=== PATIENT | male | born 1955 | race Caucasian/White ===

== ENCOUNTER 2016-10-01 13:54 | Emergency (ER) | payer BC ==
[2016-10-01 16:00] LABS: BASO % 0.9 % (0.0-1.0); EOS % 0.9 % (0.0-3.0); LARGE UNSTAINED CELL # 0.1 K/mm3 (0.0-0.4); LARGE UNSTAINED CELL % 2.3 % (0.0-4.0); LYMPH # 1.6 K/mm3 (1.5-4.5); LYMPH % 29.5 % (24.0-44.0); MEAN CORPUSCULAR HEMOGLOBIN 31.7 pg (27.0-33.0); MEAN CORPUSCULAR HGB CONC 33.5 g/dl (32.0-36.5); MEAN CORPUSCULAR VOLUME 94.7 fl (80.0-96.0); MONO # 0.3 K/mm3 (0.0-0.8); MONO % 6.2 % (0.0-5.0); NEUTROPHILS % 60.2 % (36.0-66.0); PLATELET COUNT, AUTOMATED 206 k/mm3 (150-450); RED CELL DISTRIBUTION WIDTH 13.2 % (11.5-14.5)
[2016-10-01 16:22] LABS: ALBUMIN 3.8 GM/DL (3.2-5.2); ALBUMIN/GLOBULIN RATIO 1.03 (1.00-1.93); ALKALINE PHOSPHATASE 59 U/L (45-117); ALT/SGPT 20 U/L (12-78); AMYLASE 44 U/L (25-115); ANION GAP 9 MEQ/L (8-16); AST/SGOT 12 U/L (15-37); BILIRUBIN,DIRECT 0.1 MG/DL (0.0-0.2); BILIRUBIN,TOTAL 0.5 MG/DL (0.2-1.0); BLOOD UREA NITROGEN 14 MG/DL (7-18); CALCIUM LEVEL 8.5 MG/DL (8.8-10.2); CARBON DIOXIDE LEVEL 27 MEQ/L (21-32); CHLORIDE LEVEL 109 MEQ/L (98-107); CREATININE FOR GFR 0.86 MG/DL (0.70-1.30); GLOMERULAR FILTRATION RATE > 60.0 (>49); GLUCOSE, FASTING 95 MG/DL (80-110); SODIUM LEVEL 145 MEQ/L (136-145); TOTAL PROTEIN 7.5 GM/DL (6.4-8.2)
[2016-10-01] MEDS ORDERED: ISOVUE-370 76% 100ML VIAL (Q9967) As Ordered ONE (16:43)
--- NOTE | 2016-10-01 17:16 | REP ---
Clinical: Left-sided abdominal pain. Technique: Axial contrast enhanced images from the lung bases to the pubic symphysis using 100 ml Isovue 370 intravenous contrast material with coronal and sagittal re-formations. Findings: Lung bases clear. Visualized heart and pericardium normal. Liver, spleen, pancreas, gallbladder, bilateral adrenal glands and kidneys are essentially normal. Approximately four benign appearing splenic cysts are identified measuring up to 1.4 cm diameter. Small hiatal hernia identified at the gastroesophageal junction. The enteric system is without obstruction or acute inflammatory process. Pelvis demonstrates normal bladder and mild enlargement to the prostate gland measuring up to approximately 4.2 cm maximal diameter with mild mass effect on the base of the bladder. No pelvic fluid or ascites. No adenopathy. No free air. Mild atherosclerotic changes to the vasculature without aortic aneurysm or dissection. Musculoskeletal structures demonstrate age-related degenerative changes to the lumbosacral spine without focal osseous abnormality. Evidence of prior right inguinal hernia repair. Impression: Few benign-appearing splenic cysts up to 1.4 cm diameter. Prominent prostate gland. No further acute intra-abdominal or pelvic pathology appreciated. Signed by Jesus Denson MD 10/01/2016 05:08 P
--- NOTE | 2016-10-01 18:12 | EDDOCDS ---
Physician Documentation [facility] Name: Thony Simpson Age: 61 yrs Sex: Male : 1955 Arrival Date: 10/01/2016 Time: 13:54 Bed I6 / 28 Private MD: Martita Li N. Disposition: 10/01/16 17:37 Discharged to Home/Self Care. Impression: Abdominal and pelvic pain - with Splenic Cysts up to 1.4 cm, benign appearing. - Condition is Stable. - Discharge Instructions: Abdominal Pain, Adult. - Medication Reconciliation, Local Pharmacy Hours form. - Follow up: Martita Li; When: 1 - 2 days; Reason: Recheck today's complaints, Continuance of care. Follow up: Emergency Department; When: As needed; Reason: Worsening of conditions. - Problem is new. - Symptoms have improved. Historical: - Allergies: no known allergies; - Home Meds: 1. Zantac 75 mg Oral every couple of weeks- prn - PMHx: Hypertension; GERD; Hyperthyroidism; - PSHx: Colonoscopy; Hernia repair; - Social history: Smoking status: Patient states was never smoker of tobacco. No barriers to communication noted, The patient speaks fluent Armenian, Speaks appropriately for age. - Family history: Not pertinent. - : The pt / caregiver states he / she is not on anticoagulants. Home medication list is obtained from the patient. - Exposure Risk Screening:: None identified. Vital Signs: 10/01 13:56 BP 165 / 98; Pulse 82; Resp 18 S; Temp 97.9(O); Pulse Ox 100% on R/A; Weight 86.18 kg / dd6 189.99 lbs (R); Height 6 ft. 0 in. (182.88 cm) (R); 17:59 BP 145 / 75; Pulse 72; Resp 20; Temp 97.6; Pulse Ox 100% ; Pain 3/10; jam1 13:56 Body Mass Index 25.77 (86.18 kg, 182.88 cm) dd6 MDM: 14:11 HIV Screen, Nursing ordered. srm 15:15 IV Saline Lock ordered. dk1 15:15 Undress patient appropriately for examination ordered. dk1 15:17 NOTHING BY MOUTH+DIET ordered. EDMS 15:17 Amylase Ordered. EDMS 15:17 Basic Metabolic Profile Ordered. EDMS 15:17 CBC with Diff Ordered. EDMS 15:17 Urinalysis Ordered. EDMS 15:17 Urine Culture Ordered. EDMS 15:20 LIPASE Ordered. EDMS 15:20 LIVER PROFILE Ordered. EDMS 15:32 Financial registration complete. lg 15:35 [facility] Payment Agreement was scanned into [employer] and attached to record. lg 16:34 Basic Metabolic Profile Reviewed. dk1 16:34 CBC with Diff Reviewed. dk1 16:34 Urinalysis Reviewed. dk1 16:34 LIVER PROFILE Reviewed. dk1 16:34 Amylase Reviewed. dk1 16:34 LIPASE Reviewed. dk1 16:35 CT ABD & PELVIS: IV Contrast Only Ordered. EDMS 17:33 CT ABD & PELVIS: IV Contrast Only Reviewed. dk1 Signatures: Dispatcher [employer] EDMS Shasta Chacon, RN RN [facility] Rosa Arnett, Reg Reg Emiliano Coker, PAGillian PAGillian dk1 Kathy Webb RN RN [facility] The chart was reviewed and I authenticate all verbal orders and agree with the evaluation and treatment provided.Corrections: (The following items were deleted from the chart) 15:20 15:17 LIPASE+LAB ordered. EDMS EDMS 15:20 15:17 LIVER PROFILE+LAB ordered. EDMS EDMS Attachments: 15:35 [facility] Payment Agreement lg MTDD
--- NOTE | 2016-10-01 18:12 | EDDOCDS ---
Nurse's Notes [facility] Name: Thony Simpson Age: 61 yrs Sex: Male : 1955 Arrival Date: 10/01/2016 Time: 13:54 Bed I6 / 28 Private MD: Martita Li N. Diagnosis: Abdominal and pelvic pain-with Splenic Cysts up to 1.4 cm, benign appearing Presentation: 10/01 14:04 Presenting complaint: Patient states: left upper quad pain for 2 weeks. no n/v/d. seen srm at [facility] and sent here for further eval. Adult Sepsis Screening: The patient does not have new or worsening altered mentation. Patient's respiratory rate is less than 22. Systolic blood pressure is greater than 100. Patient has a qSOFA score of 0- Negative Sepsis Screen. Suicide/Homicide risk assessment- the patient denies having any suicidal and/or homicidal ideations and does not present with any other emotional, behavioral or mental health complaints. Status: Patient is not a funeral service manager or dependent. Transition of care: Patient was received from [facility]. 14:04 Acuity: HOMA Level 3 [facility] 14:04 Method Of Arrival: Walkin/Carried/[facility] Triage Assessment: 14:09 General: Appears in no apparent distress, Behavior is appropriate for age, cooperative. srm Pain: Pain currently is 3 out of 10 on a pain scale. GI: Reports LUQ pain. Historical: - Allergies: no known allergies; - Home Meds: 1. Zantac 75 mg Oral every couple of weeks- prn - PMHx: Hypertension; GERD; Hyperthyroidism; - PSHx: Colonoscopy; Hernia repair; - Social history: Smoking status: Patient states was never smoker of tobacco. No barriers to communication noted, The patient speaks fluent South Korean, Speaks appropriately for age. - Family history: Not pertinent. - : The pt / caregiver states he / she is not on anticoagulants. Home medication list is obtained from the patient. - Exposure Risk Screening:: None identified. Screenin:01 Screening information is obtained from the patient. Primary language is South Korean. Fall jam1 risk: No risks identified. Assistance ADL's: requires no assistance with activities of daily living. Abuse/DV Screen: The patient / caregiver reports he/she is: not in a situation that causes fear, pain or injury. Nutritional screening: No deficits noted. Exposure Risk Screening: None identified. Advance Directives: Currently, there is no health care proxy. There is no active DNR order. There is no living will. There is no Power of Correctional Cook. Advance directive information has not previously been placed in an [facility] medical record. Further advance directive information is declined. home support is adequate. Assessment: 15:42 Adult Sepsis Screening: The patient does not have new or worsening altered mentation. lf1 Patient's respiratory rate is less than 22. Systolic blood pressure is greater than 100. Patient has a qSOFA score of 0- Negative Sepsis Screen. General: Appears in no apparent distress, comfortable, Behavior is cooperative. Pain: Location: left upper quadrant Pain currently is 4 out of 10 on a pain scale. Pain began 1 Week ago - pt is intermittent, worse at night. Neurological: Level of Consciousness is awake, alert, Oriented to person, place, time. EENT: No deficits noted. Cardiovascular: Chest pain is denied. Respiratory: Respiratory effort is even, unlabored, Denies cough, shortness of breath. GI: Abdomen is non- distended Bowel sounds present X 4 quads. Abd is soft and non tender Denies diarrhea, vomiting. : No deficits noted. Derm: Skin is normal. 17:02 Adult Sepsis Screening: The patient does not have new or worsening altered mentation. lf1 Patient's respiratory rate is less than 22. Systolic blood pressure is greater than 100. Patient has a qSOFA score of 0- Negative Sepsis Screen. General: Appears in no apparent distress, comfortable, Behavior is cooperative, pleasant. Pain: Location: left upper quadrant Pain currently is 2 out of 10 on a pain scale. Neurological: Level of Consciousness is awake, alert, Oriented to person, place, time, Moves all extremities. Gait is steady, Speech is normal. EENT: No deficits noted. Cardiovascular: Chest pain is denied. Respiratory: Respiratory effort is even, unlabored. 18:09 General: Appears in no apparent distress, comfortable, Behavior is appropriate for age, h cooperative, pleasant, reviewed discharge instructions, encouraged and answered questions, denies further needs, declines offer of further assistance. Vital Signs: 13:56 BP 165 / 98; Pulse 82; Resp 18 S; Temp 97.9(O); Pulse Ox 100% on R/A; Weight 86.18 kg dd6 (R); Height 6 ft. 0 in. (182.88 cm) (R); 17:59 BP 145 / 75; Pulse 72; Resp 20; Temp 97.6; Pulse Ox 100% ; Pain 3/10; jam1 13:56 Body Mass Index 25.77 (86.18 kg, 182.88 cm) dd6 Vitals: 13:56 Log In Time: October 01, 2016 at 13:54. dd6 17:01 HIV Screen Result: Negative. ms18 ED Course: 13:55 Patient visited by Dexter Ramos PCA. dd6 13:55 Martita Li is Private Physician. dd6 13:55 Patient moved to Waiting dd6 13:56 Patient moved to Pre RCE dd6 14:06 Triage Initiated srm 14:58 Patient moved to Triage 1 ms18 15:04 Patient visited by Mandy Jackson RN. ms18 15:08 [facility] Coker [facility]. dk1 15:08 Vale Ortiz MD is Attending Physician. dk1 15:08 Patient visited by Emiliano Coker PA-C. dk1 15:17 Patient moved to I ms18 15:21 Pt greeted and oriented to ED. Patient advised of names of staff involved in care, [facility] location of call shaw, wait times and NPO status. Patient has correct armband on for positive identification. Placed in gown. Bed in low position. Call light in reach. Side rails up X 1. Door closed. 15:35 Patient name changed from Thony\S\\S\Offshack\S\ to Thony\S\Vickey\S\Offshack. EDMS 15:35 COUNT INCLUDES THE [facility] Payment Agreement was scanned into [employer] and attached to record. lg 15:42 The patient / caregiver is instructed regarding the plan of care and ED course. Door lf1 closed. Noise minimized. 15:42 Urine Culture Sent. lf1 15:42 Urinalysis Sent. lf1 15:42 CBC with Diff Sent. lf1 15:42 Basic Metabolic Profile Sent. lf1 15:42 Amylase Sent. lf1 15:42 LIPASE Sent. lf1 15:42 LIVER PROFILE Sent. lf1 15:42 Inserted saline lock: 20 gauge in right antecubital area and blood collected. The lf1 patient tolerated the procedure well. Labs drawn. (by ED staff). Sent per order to lab. Urine collected. Clean catch specimen. 15:44 Patient visited by Jaqui Silverman RN. lf1 17:26 CT ABD & PELVIS: IV Contrast Only Returned. EDMS 17:36 Martita Li is Referral Physician. dk1 18:09 Discontinued lock intact, bleeding controlled, pressure dressing applied, No cjh redness/swelling at site. No procedures done that require assistance. Order Results: Lab Order: Amylase; SPEC'M 10/01/16 15:40 Test: AMYLASE; Value: 44; Range: 25-115; Units: U/L; Status: F Lab Order: Basic Metabolic Profile; SPEC'M 10/01/16 15:40 Test: GLUCOSE, FASTING; Value: 95; Range: 80-110; Units: MG/DL; Status: F Test: BLOOD UREA NITROGEN; Value: 14; Range: 7-18; Units: MG/DL; Status: F Test: CREATININE FOR GFR; Value: 0.86; Range: 0.70-1.30; Units: MG/DL; Status: F Test: GLOMERULAR FILTRATION RATE; Value: > 60.0; Range: >49; Status: F Test: SODIUM LEVEL; Value: 145; Range: 136-145; Units: MEQ/L; Status: F Test: POTASSIUM SERUM; Value: 4.0; Range: 3.5-5.1; Units: MEQ/L; Status: F Test: CHLORIDE LEVEL; Value: 109; Range: 98-107; Abnormal: Above high normal; Units: MEQ/L; Status: F Test: CARBON DIOXIDE LEVEL; Value: 27; Range: 21-32; Units: MEQ/L; Status: F Test: ANION GAP; Value: 9; Range: 8-16; Units: MEQ/L; Status: F Test: CALCIUM LEVEL; Value: 8.5; Range: 8.8-10.2; Abnormal: Below low normal; Units: MG/DL; Status: F Test Note: ; Units are mL/min/1.73 m2 Chronic Kidney Disease Staging per NKF: Stage I & II GFR >=60 Normal to Mildly Decreased Stage III GFR 30-59 Moderately Decreased Stage IV GFR 15-29 Severely Decreased Stage V GFR <15 Very Little GFR Left ESRD GFR <15 on ANODIC OPERATOR Lab Order: CBC with Diff; ALIYA'M 10/01/16 15:40 Test: WHITE BLOOD COUNT; Value: 5.0; Range: 4.0-10.0; Units: K/mm3; Status: F Test: RED BLOOD COUNT; Value: 4.79; Range: 4.30-6.10; Units: M/mm3; Status: F Test: HEMOGLOBIN; Value: 15.2; Range: 14.0-18.0; Units: g/dl; Status: F Test: HEMATOCRIT; Value: 45.4; Range: 42.0-52.0; Units: %; Status: F Test: MEAN CORPUSCULAR VOLUME; Value: 94.7; Range: 80.0-96.0; Units: fl; Status: F Test: MEAN CORPUSCULAR HEMOGLOBIN; Value: 31.7; Range: 27.0-33.0; Units: pg; Status: F Test: MEAN CORPUSCULAR HGB CONC; Value: 33.5; Range: 32.0-36.5; Units: g/dl; Status: F Test: RED CELL DISTRIBUTION WIDTH; Value: 13.2; Range: 11.5-14.5; Units: %; Status: F Test: PLATELET COUNT, AUTOMATED; Value: 206; Range: 150-450; Units: k/mm3; Status: F Test: NEUTROPHILS %; Value: 60.2; Range: 36.0-66.0; Units: %; Status: F Test: LYMPH %; Value: 29.5; Range: 24.0-44.0; Units: %; Status: F Test: MONO %; Value: 6.2; Range: 0.0-5.0; Abnormal: Above high normal; Units: %; Status: F Test: EOS %; Value: 0.9; Range: 0.0-3.0; Units: %; Status: F Test: BASO %; Value: 0.9; Range: 0.0-1.0; Units: %; Status: F Test: LARGE UNSTAINED CELL %; Value: 2.3; Range: 0.0-4.0; Units: %; Status: F Test: NEUTROPHILS #; Value: 3.0; Range: 1.8-7.7; Units: K/mm3; Status: F Test: LYMPH #; Value: 1.6; Range: 1.5-4.5; Units: K/mm3; Status: F Test: MONO #; Value: 0.3; Range: 0.0-0.8; Units: K/mm3; Status: F Test: EOS #; Value: 0.0; Range: 0.0-0.50; Units: K/mm3; Status: F Test: BASO #; Value: 0.0; Range: 0.0-0.2; Units: K/mm3; Status: F Test: LARGE UNSTAINED CELL #; Value: 0.1; Range: 0.0-0.4; Units: K/mm3; Status: F Lab Order: Urinalysis; SPEC'M 10/01/16 15:40 Test: APPEARANCE, URINE; Value: CLEAR; Range: CLEAR; Status: F Test: COLOR, URINE; Value: YELLOW; Range: YELLOW; Status: F Test: PH,URINE; Value: 5.0; Range: 5.0-9.0; Units: UNITS; Status: F Test: SPECIFIC GRAVITY URINE AUTO; Value: 1.014; Range: 1.002-1.035; Status: F Test: PROTEIN, URINE AUTO; Value: NEGATIVE; Range: NEGATIVE; Units: mg/dL; Status: F Test: GLUCOSE, URINE (UA) AUTO; Value: NEGATIVE; Range: NEGATIVE; Units: mg/dL; Status: F Test: KETONE, URINE AUTO; Value: 1+; Range: NEGATIVE; Abnormal: Above high normal; Units: mg/dL; Status: F Test: UROBILINOGEN, URINE AUTO; Value: 0.2; Range: 0.0-2.0; Units: mg/dL; Status: F Test: BILIRUBIN, URINE AUTO; Value: NEGATIVE; Range: NEGATIVE; Status: F Test: NITRITE, URINE AUTO; Value: NEGATIVE; Range: NEGATIVE; Status: F Test: LEUKOCYTE ESTERASE, URINE AUTO; Value: NEGATIVE; Range: NEGATIVE; Status: F Test: BLOOD, URINE BLOOD; Value: 1+; Range: NEGATIVE; Abnormal: Above high normal; Status: F Test: WBC, URINE AUTO; Value: 0; Range: 0-3; Units: /HPF; Status: F Test: RBC, URINE AUTO; Value: 0; Range: 0-3; Units: /HPF; Status: F Test: BACTERIA, URINE AUTO; Value: NEGATIVE; Range: NEGATIVE; Status: F Test: SQUAMOUS EPITHELIAL CELL UR AU; Value: 0; Range: 0-6; Units: /HPF; Status: F Test: MUCUS, URINE; Value: SMALL; Range: NEGATIVE; Status: F Test: HYALINE CAST, URINE AUTO; Value: 0; Range: 0-1; Units: /LPF; Status: F Lab Order: LIPASE; SPEC'M 10/01/16 15:40 Test: LIPASE; Value: 102; Range: 73-393; Units: U/L; Status: F Lab Order: LIVER PROFILE; SPEC'M 10/01/16 15:40 Test: AST/SGOT; Value: 12; Range: 15-37; Abnormal: Below low normal; Units: U/L; Status: F Test: ALT/SGPT; Value: 20; Range: 12-78; Units: U/L; Status: F Test: ALKALINE PHOSPHATASE; Value: 59; Range: 45-117; Units: U/L; Status: F Test: BILIRUBIN,TOTAL; Value: 0.5; Range: 0.2-1.0; Units: MG/DL; Status: F Test: BILIRUBIN,DIRECT; Value: 0.1; Range: 0.0-0.2; Units: MG/DL; Status: F Test: TOTAL PROTEIN; Value: 7.5; Range: 6.4-8.2; Units: GM/DL; Status: F Test: ALBUMIN; Value: 3.8; Range: 3.2-5.2; Units: GM/DL; Status: F Test: ALBUMIN/GLOBULIN RATIO; Value: 1.03; Range: 1.00-1.93; Status: F Radiology Order: CT ABD & PELVIS: IV Contrast Only Test: CT ABD & PELVIS: IV Contrast Only REASON FOR EXAMINATION: Biliary Colic; Clinical: Left-sided abdominal pain.; ; Technique: Axial contrast enhanced images from the lung bases to the pubic; symphysis using 100 ml Isovue 370 intravenous contrast material with coronal and; sagittal re-formations.; ; Findings:; Lung bases clear. Visualized heart and pericardium normal.; ; Liver, spleen, pancreas, gallbladder, bilateral adrenal glands and kidneys are; essentially normal. Approximately four benign appearing splenic cysts are; identified measuring up to 1.4 cm diameter. Small hiatal hernia identified at; the gastroesophageal junction. The enteric system is without obstruction or; acute inflammatory process. Pelvis demonstrates normal bladder and mild; enlargement to the prostate gland measuring up to approximately 4.2 cm maximal; diameter with mild mass effect on the base of the bladder. No pelvic fluid or; ascites. No adenopathy. No free air. Mild atherosclerotic changes to the; vasculature without aortic aneurysm or dissection. Musculoskeletal structures; demonstrate age-related degenerative changes to the lumbosacral spine without; focal osseous abnormality. Evidence of prior right inguinal hernia repair.; ; Impression:; Few benign-appearing splenic cysts up to 1.4 cm diameter.; Prominent prostate gland.; No further acute intra-abdominal or pelvic pathology appreciated.; ; ; Signed by; Jesus Denson MD 10/01/2016 05:08 P; Outcome: 17:36 Discharge ordered by Provider. dk1 18:09 Discharge Assessment: Patient awake, alert and oriented x 3. No cognitive and/or [facility] functional deficits noted. Patient verbalized understanding of disposition instructions. patient administered narcotics - no. The following High Risk Discharge criteria are identified: None. Discharged to home ambulatory. Condition: good Condition: stable Condition: improved. Discharge instructions given to patient, Instructed on discharge instructions, follow up and referral plans. Demonstrated understanding of instructions, Pt was receptive of discharge instructions/ teaching. CT Study completed. Property :Personal belongings accompany Pt. 18:11 Patient left the ED. [facility] Signatures: Dispatcher [employer] EDMS Shasta Chacon RN RN srm Murphy, Jane, DRAFTING SUPERVISOR DRAFTING SUPERVISOR jam1 Rosa Arnett Reg Reg lg Keyes, David, PA-C PAAmairaniC [email or web address] Jaqui Silverman,JEREL RN lf1 Dexter Ramos, DRAFTING SUPERVISOR DRAFTING SUPERVISOR dd6 Kathy Webb RN RN [facility] Mandy Jackson RN RN ms18 Corrections: (The following items were deleted from the chart) 17:02 15:42 Pain: Location: left upper quadrant Pain currently is 7 out of 10 on a pain lf1 scale. Pain began 1 Week ago - pt is intermittent, worse at night lf1 18:03 18:02 Patient has correct armband on for positive identification. Bed in low position. jam1 Call light in reach. Side rails up X 1. jam1 18:03 18:02 Door closed. jam1 jam1 MTDD
--- NOTE | 2016-10-03 19:11 | EDDOCDS ---
Nurse's Notes [facility] Name: Thony Simpson Age: 61 yrs Sex: Male : 1955 Arrival Date: 10/01/2016 Time: 13:54 Bed I6 / 28 Private MD: Martita Li N. Diagnosis: Abdominal and pelvic pain-with Splenic Cysts up to 1.4 cm, benign appearing Presentation: 10/01 14:04 Presenting complaint: Patient states: left upper quad pain for 2 weeks. no n/v/d. seen srm at [facility] and sent here for further eval. Adult Sepsis Screening: The patient does not have new or worsening altered mentation. Patient's respiratory rate is less than 22. Systolic blood pressure is greater than 100. Patient has a qSOFA score of 0- Negative Sepsis Screen. Suicide/Homicide risk assessment- the patient denies having any suicidal and/or homicidal ideations and does not present with any other emotional, behavioral or mental health complaints. Status: Patient is not a service plumber or dependent. Transition of care: Patient was received from [facility]. 14:04 Acuity: HOMA Level 3 [facility] 14:04 Method Of Arrival: Walkin/Carried/Asstd [facility] Triage Assessment: 14:09 General: Appears in no apparent distress, Behavior is appropriate for age, cooperative. srm Pain: Pain currently is 3 out of 10 on a pain scale. GI: Reports LUQ pain. Historical: - Allergies: no known allergies; - Home Meds: 1. Zantac 75 mg Oral every couple of weeks- prn - PMHx: Hypertension; GERD; Hyperthyroidism; - PSHx: Colonoscopy; Hernia repair; - Social history: Smoking status: Patient states was never smoker of tobacco. No barriers to communication noted, The patient speaks fluent [place], Speaks appropriately for age. - Family history: Not pertinent. - : The pt / caregiver states he / she is not on anticoagulants. Home medication list is obtained from the patient. - Exposure Risk Screening:: None identified. Screenin:01 Screening information is obtained from the patient. Primary language is [place] Islander. Fall jam1 risk: No risks identified. Assistance ADL's: requires no assistance with activities of daily living. Abuse/DV Screen: The patient / caregiver reports he/she is: not in a situation that causes fear, pain or injury. Nutritional screening: No deficits noted. Exposure Risk Screening: None identified. Advance Directives: Currently, there is no health care proxy. There is no active DNR order. There is no living will. There is no Power of Hairspring Studder. Advance directive information has not previously been placed in an [facility] medical record. Further advance directive information is declined. home support is adequate. Assessment: 15:42 Adult Sepsis Screening: The patient does not have new or worsening altered mentation. lf1 Patient's respiratory rate is less than 22. Systolic blood pressure is greater than 100. Patient has a qSOFA score of 0- Negative Sepsis Screen. General: Appears in no apparent distress, comfortable, Behavior is cooperative. Pain: Location: left upper quadrant Pain currently is 4 out of 10 on a pain scale. Pain began 1 Week ago - pt is intermittent, worse at night. Neurological: Level of Consciousness is awake, alert, Oriented to person, place, time. EENT: No deficits noted. Cardiovascular: Chest pain is denied. Respiratory: Respiratory effort is even, unlabored, Denies cough, shortness of breath. GI: Abdomen is non- distended Bowel sounds present X 4 quads. Abd is soft and non tender Denies diarrhea, vomiting. : No deficits noted. Derm: Skin is normal. 17:02 Adult Sepsis Screening: The patient does not have new or worsening altered mentation. lf1 Patient's respiratory rate is less than 22. Systolic blood pressure is greater than 100. Patient has a qSOFA score of 0- Negative Sepsis Screen. General: Appears in no apparent distress, comfortable, Behavior is cooperative, pleasant. Pain: Location: left upper quadrant Pain currently is 2 out of 10 on a pain scale. Neurological: Level of Consciousness is awake, alert, Oriented to person, place, time, Moves all extremities. Gait is steady, Speech is normal. EENT: No deficits noted. Cardiovascular: Chest pain is denied. Respiratory: Respiratory effort is even, unlabored. 18:09 General: Appears in no apparent distress, comfortable, Behavior is appropriate for age, h cooperative, pleasant, reviewed discharge instructions, encouraged and answered questions, denies further needs, declines offer of further assistance. Vital Signs: 13:56 BP 165 / 98; Pulse 82; Resp 18 S; Temp 97.9(O); Pulse Ox 100% on R/A; Weight 86.18 kg dd6 (R); Height 6 ft. 0 in. (182.88 cm) (R); 17:59 BP 145 / 75; Pulse 72; Resp 20; Temp 97.6; Pulse Ox 100% ; Pain 3/10; jam1 13:56 Body Mass Index 25.77 (86.18 kg, 182.88 cm) dd6 Vitals: 13:56 Log In Time: October 01, 2016 at 13:54. dd6 17:01 HIV Screen Result: Negative. ms18 ED Course: 13:55 Patient visited by Dexter Ramos PCA. dd6 13:55 Martita Li is Private Physician. dd6 13:55 Patient moved to Waiting dd6 13:56 Patient moved to Pre RCE dd6 14:06 Triage Initiated srm 14:58 Patient moved to Triage 1 ms18 15:04 Patient visited by Mandy Jackson RN. ms18 15:08 [facility] dk1 15:08 Vale Ortiz MD is Attending Physician. dk1 15:08 Patient visited by Emiliano Coker PA-C. dk1 15:17 Patient moved to I ms18 15:21 Pt greeted and oriented to ED. Patient advised of names of staff involved in care, [facility] location of call shaw, wait times and NPO status. Patient has correct armband on for positive identification. Placed in gown. Bed in low position. Call light in reach. Side rails up X 1. Door closed. 15:35 Patient name changed from Thony\S\\S\Offshack\S\ to Thony\S\Vickey\S\Offshack. EDMS 15:35 [facility] Payment Agreement was scanned into [employer] and attached to record. lg 15:42 The patient / caregiver is instructed regarding the plan of care and ED course. Door lf1 closed. Noise minimized. 15:42 Urine Culture Sent. lf1 15:42 Urinalysis Sent. lf1 15:42 CBC with Diff Sent. lf1 15:42 Basic Metabolic Profile Sent. lf1 15:42 Amylase Sent. lf1 15:42 LIPASE Sent. lf1 15:42 LIVER PROFILE Sent. lf1 15:42 Inserted saline lock: 20 gauge in right antecubital area and blood collected. The lf1 patient tolerated the procedure well. Labs drawn. (by ED staff). Sent per order to lab. Urine collected. Clean catch specimen. 15:44 Patient visited by Jaqui Silverman RN. lf1 17:26 CT ABD & PELVIS: IV Contrast Only Returned. EDMS 17:36 Martita Li is Referral Physician. dk1 18:09 Discontinued lock intact, bleeding controlled, pressure dressing applied, No cjh redness/swelling at site. No procedures done that require assistance. 10/02 06:01 T-Sheet-- Draft Copy was scanned into [employer] and attached to record. lja 10:26 Radiology Report was scanned into [employer] and attached to record. gb Order Results: Lab Order: Amylase; SPEC'M 10/01/16 15:40 Test: AMYLASE; Value: 44; Range: 25-115; Units: U/L; Status: F Lab Order: Basic Metabolic Profile; SPEC'M 10/01/16 15:40 Test: GLUCOSE, FASTING; Value: 95; Range: 80-110; Units: MG/DL; Status: F Test: BLOOD UREA NITROGEN; Value: 14; Range: 7-18; Units: MG/DL; Status: F Test: CREATININE FOR GFR; Value: 0.86; Range: 0.70-1.30; Units: MG/DL; Status: F Test: GLOMERULAR FILTRATION RATE; Value: > 60.0; Range: >49; Status: F Test: SODIUM LEVEL; Value: 145; Range: 136-145; Units: MEQ/L; Status: F Test: POTASSIUM SERUM; Value: 4.0; Range: 3.5-5.1; Units: MEQ/L; Status: F Test: CHLORIDE LEVEL; Value: 109; Range: 98-107; Abnormal: Above high normal; Units: MEQ/L; Status: F Test: CARBON DIOXIDE LEVEL; Value: 27; Range: 21-32; Units: MEQ/L; Status: F Test: ANION GAP; Value: 9; Range: 8-16; Units: MEQ/L; Status: F Test: CALCIUM LEVEL; Value: 8.5; Range: 8.8-10.2; Abnormal: Below low normal; Units: MG/DL; Status: F Test Note: ; Units are mL/min/1.73 m2 Chronic Kidney Disease Staging per NKF: Stage I & II GFR >=60 Normal to Mildly Decreased Stage III GFR 30-59 Moderately Decreased Stage IV GFR 15-29 Severely Decreased Stage V GFR <15 Very Little GFR Left ESRD GFR <15 on WILDLIFE TECHNICIAN Lab Order: CBC with Diff; ALIYA'M 10/01/16 15:40 Test: WHITE BLOOD COUNT; Value: 5.0; Range: 4.0-10.0; Units: K/mm3; Status: F Test: RED BLOOD COUNT; Value: 4.79; Range: 4.30-6.10; Units: M/mm3; Status: F Test: HEMOGLOBIN; Value: 15.2; Range: 14.0-18.0; Units: g/dl; Status: F Test: HEMATOCRIT; Value: 45.4; Range: 42.0-52.0; Units: %; Status: F Test: MEAN CORPUSCULAR VOLUME; Value: 94.7; Range: 80.0-96.0; Units: fl; Status: F Test: MEAN CORPUSCULAR HEMOGLOBIN; Value: 31.7; Range: 27.0-33.0; Units: pg; Status: F Test: MEAN CORPUSCULAR HGB CONC; Value: 33.5; Range: 32.0-36.5; Units: g/dl; Status: F Test: RED CELL DISTRIBUTION WIDTH; Value: 13.2; Range: 11.5-14.5; Units: %; Status: F Test: PLATELET COUNT, AUTOMATED; Value: 206; Range: 150-450; Units: k/mm3; Status: F Test: NEUTROPHILS %; Value: 60.2; Range: 36.0-66.0; Units: %; Status: F Test: LYMPH %; Value: 29.5; Range: 24.0-44.0; Units: %; Status: F Test: MONO %; Value: 6.2; Range: 0.0-5.0; Abnormal: Above high normal; Units: %; Status: F Test: EOS %; Value: 0.9; Range: 0.0-3.0; Units: %; Status: F Test: BASO %; Value: 0.9; Range: 0.0-1.0; Units: %; Status: F Test: LARGE UNSTAINED CELL %; Value: 2.3; Range: 0.0-4.0; Units: %; Status: F Test: NEUTROPHILS #; Value: 3.0; Range: 1.8-7.7; Units: K/mm3; Status: F Test: LYMPH #; Value: 1.6; Range: 1.5-4.5; Units: K/mm3; Status: F Test: MONO #; Value: 0.3; Range: 0.0-0.8; Units: K/mm3; Status: F Test: EOS #; Value: 0.0; Range: 0.0-0.50; Units: K/mm3; Status: F Test: BASO #; Value: 0.0; Range: 0.0-0.2; Units: K/mm3; Status: F Test: LARGE UNSTAINED CELL #; Value: 0.1; Range: 0.0-0.4; Units: K/mm3; Status: F Lab Order: Urinalysis; SPEC'M 10/01/16 15:40 Test: APPEARANCE, URINE; Value: CLEAR; Range: CLEAR; Status: F Test: COLOR, URINE; Value: YELLOW; Range: YELLOW; Status: F Test: PH,URINE; Value: 5.0; Range: 5.0-9.0; Units: UNITS; Status: F Test: SPECIFIC GRAVITY URINE AUTO; Value: 1.014; Range: 1.002-1.035; Status: F Test: PROTEIN, URINE AUTO; Value: NEGATIVE; Range: NEGATIVE; Units: mg/dL; Status: F Test: GLUCOSE, URINE (UA) AUTO; Value: NEGATIVE; Range: NEGATIVE; Units: mg/dL; Status: F Test: KETONE, URINE AUTO; Value: 1+; Range: NEGATIVE; Abnormal: Above high normal; Units: mg/dL; Status: F Test: UROBILINOGEN, URINE AUTO; Value: 0.2; Range: 0.0-2.0; Units: mg/dL; Status: F Test: BILIRUBIN, URINE AUTO; Value: NEGATIVE; Range: NEGATIVE; Status: F Test: NITRITE, URINE AUTO; Value: NEGATIVE; Range: NEGATIVE; Status: F Test: LEUKOCYTE ESTERASE, URINE AUTO; Value: NEGATIVE; Range: NEGATIVE; Status: F Test: BLOOD, URINE BLOOD; Value: 1+; Range: NEGATIVE; Abnormal: Above high normal; Status: F Test: WBC, URINE AUTO; Value: 0; Range: 0-3; Units: /HPF; Status: F Test: RBC, URINE AUTO; Value: 0; Range: 0-3; Units: /HPF; Status: F Test: BACTERIA, URINE AUTO; Value: NEGATIVE; Range: NEGATIVE; Status: F Test: SQUAMOUS EPITHELIAL CELL UR AU; Value: 0; Range: 0-6; Units: /HPF; Status: F Test: MUCUS, URINE; Value: SMALL; Range: NEGATIVE; Status: F Test: HYALINE CAST, URINE AUTO; Value: 0; Range: 0-1; Units: /LPF; Status: F Lab Order: Urine Culture; [facility] 10/01/16 15:40 Test: URINE CULTURE; Value: URINE CULTURE RESULT NO GROWTH; Status: F Lab Order: LIPASE; [facility] 10/01/16 15:40 Test: LIPASE; Value: 102; Range: 73-393; Units: U/L; Status: F Lab Order: LIVER PROFILE; [facility] 10/01/16 15:40 Test: AST/SGOT; Value: 12; Range: 15-37; Abnormal: Below low normal; Units: U/L; Status: F Test: ALT/SGPT; Value: 20; Range: 12-78; Units: U/L; Status: F Test: ALKALINE PHOSPHATASE; Value: 59; Range: 45-117; Units: U/L; Status: F Test: BILIRUBIN,TOTAL; Value: 0.5; Range: 0.2-1.0; Units: MG/DL; Status: F Test: BILIRUBIN,DIRECT; Value: 0.1; Range: 0.0-0.2; Units: MG/DL; Status: F Test: TOTAL PROTEIN; Value: 7.5; Range: 6.4-8.2; Units: GM/DL; Status: F Test: ALBUMIN; Value: 3.8; Range: 3.2-5.2; Units: GM/DL; Status: F Test: ALBUMIN/GLOBULIN RATIO; Value: 1.03; Range: 1.00-1.93; Status: F Radiology Order: CT ABD & PELVIS: IV Contrast Only Test: CT ABD & PELVIS: IV Contrast Only REASON FOR EXAMINATION: Biliary Colic; Clinical: Left-sided abdominal pain.; ; Technique: Axial contrast enhanced images from the lung bases to the pubic; symphysis using 100 ml Isovue 370 intravenous contrast material with coronal and; sagittal re-formations.; ; Findings:; Lung bases clear. Visualized heart and pericardium normal.; ; Liver, spleen, pancreas, gallbladder, bilateral adrenal glands and kidneys are; essentially normal. Approximately four benign appearing splenic cysts are; identified measuring up to 1.4 cm diameter. Small hiatal hernia identified at; the gastroesophageal junction. The enteric system is without obstruction or; acute inflammatory process. Pelvis demonstrates normal bladder and mild; enlargement to the prostate gland measuring up to approximately 4.2 cm maximal; diameter with mild mass effect on the base of the bladder. No pelvic fluid or; ascites. No adenopathy. No free air. Mild atherosclerotic changes to the; vasculature without aortic aneurysm or dissection. Musculoskeletal structures; demonstrate age-related degenerative changes to the lumbosacral spine without; focal osseous abnormality. Evidence of prior right inguinal hernia repair.; ; Impression:; Few benign-appearing splenic cysts up to 1.4 cm diameter.; Prominent prostate gland.; No further acute intra-abdominal or pelvic pathology appreciated.; ; ; Signed by; Jesus Denson MD 10/01/2016 05:08 P; Outcome: 10/01 17:36 Discharge ordered by Provider. dk1 18:09 Discharge Assessment: Patient awake, alert and oriented x 3. No cognitive and/or [facility] functional deficits noted. Patient verbalized understanding of disposition instructions. patient administered narcotics - no. The following High Risk Discharge criteria are identified: None. Discharged to home ambulatory. Condition: good Condition: stable Condition: improved. Discharge instructions given to patient, Instructed on discharge instructions, follow up and referral plans. Demonstrated understanding of instructions, Pt was receptive of discharge instructions/ teaching. CT Study completed. Property :Personal belongings accompany Pt. 18:11 Patient left the ED. [facility] Signatures: Dispatcher [employer] EDMS Shasta Chacon, RN RN Kathy Sharma, GAMEMASTER GAMEMASTER jam1 Joanie Barbour, Reg Reg gb Rosa Arnett, Reg Reg lg Emiliano Coker, PA-C PAAmairaniC dk1 Jaqui Silverman,JEREL RN lf1 Dexter Ramos, GAMEMASTER GAMEMASTER dd6 Kathy Webb RN RN cjMandy BaxterRN RN ms18 Arel, Jaqui lockwood Corrections: (The following items were deleted from the chart) 17:02 15:42 Pain: Location: left upper quadrant Pain currently is 7 out of 10 on a pain lf1 scale. Pain began 1 Week ago - pt is intermittent, worse at night lf1 18:03 18:02 Patient has correct armband on for positive identification. Bed in low position. jam1 Call light in reach. Side rails up X 1. jam1 18:03 18:02 Door closed. [place] [id number] Chart Complete MTDD
--- NOTE | 2016-10-03 19:11 | EDDOCDS ---
Physician Documentation [facility] Name: Thony Simpson Age: 61 yrs Sex: Male : 1955 Arrival Date: 10/01/2016 Time: 13:54 Bed I6 / 28 Private MD: Martita Li N. Disposition: 10/01/16 17:37 Discharged to Home/Self Care. Impression: Abdominal and pelvic pain - with Splenic Cysts up to 1.4 cm, benign appearing. - Condition is Stable. - Discharge Instructions: Abdominal Pain, Adult. - Medication Reconciliation, Local Pharmacy Hours form. - Follow up: Martita Li; When: 1 - 2 days; Reason: Recheck today's complaints, Continuance of care. Follow up: Emergency Department; When: As needed; Reason: Worsening of conditions. - Problem is new. - Symptoms have improved. Historical: - Allergies: no known allergies; - Home Meds: 1. Zantac 75 mg Oral every couple of weeks- prn - PMHx: Hypertension; GERD; Hyperthyroidism; - PSHx: Colonoscopy; Hernia repair; - Social history: Smoking status: Patient states was never smoker of tobacco. No barriers to communication noted, The patient speaks fluent Croatian, Speaks appropriately for age. - Family history: Not pertinent. - : The pt / caregiver states he / she is not on anticoagulants. Home medication list is obtained from the patient. - Exposure Risk Screening:: None identified. Vital Signs: 10/01 13:56 BP 165 / 98; Pulse 82; Resp 18 S; Temp 97.9(O); Pulse Ox 100% on R/A; Weight 86.18 kg / dd6 189.99 lbs (R); Height 6 ft. 0 in. (182.88 cm) (R); 17:59 BP 145 / 75; Pulse 72; Resp 20; Temp 97.6; Pulse Ox 100% ; Pain 3/10; jam1 13:56 Body Mass Index 25.77 (86.18 kg, 182.88 cm) dd6 MDM: 14:11 HIV Screen, Nursing ordered. srm 15:15 IV Saline Lock ordered. dk1 15:15 Undress patient appropriately for examination ordered. dk1 15:17 NOTHING BY MOUTH+DIET ordered. EDMS 15:17 Amylase Ordered. EDMS 15:17 Basic Metabolic Profile Ordered. EDMS 15:17 CBC with Diff Ordered. EDMS 15:17 Urinalysis Ordered. EDMS 15:17 Urine Culture Ordered. EDMS 15:20 LIPASE Ordered. EDMS 15:20 LIVER PROFILE Ordered. EDMS 15:32 Financial registration complete. lg 15:35 [facility] Payment Agreement was scanned into [employer] and attached to record. lg 16:34 Basic Metabolic Profile Reviewed. dk1 16:34 CBC with Diff Reviewed. dk1 16:34 Urinalysis Reviewed. dk1 16:34 LIVER PROFILE Reviewed. dk1 16:34 Amylase Reviewed. dk1 16:34 LIPASE Reviewed. dk1 16:35 CT ABD & PELVIS: IV Contrast Only Ordered. EDMS 17:33 CT ABD & PELVIS: IV Contrast Only Reviewed. dk1 10/02 06:01 T-Sheet-- Draft Copy was scanned into [employer] and attached to record. lja 10:26 Radiology Report was scanned into [employer] and attached to record. gb Signatures: Dispatcher [employer] EDShasta Copeland, RN JEREL [facility] Joanie Barbour, Reg Reg gb Rosa Arnett, Reg Reg lg Emiliano Coker, PA-C PAAmairaniC dk1 Kathy Wbeb RN RN [facility] Jaqui James The chart was reviewed and I authenticate all verbal orders and agree with the evaluation and treatment provided.Corrections: (The following items were deleted from the chart) 10/01 15:20 15:17 LIPASE+LAB ordered. EDMS EDMS 15:20 15:17 LIVER PROFILE+LAB ordered. EDWA EDMS Attachments: 15:35 [facility] Payment Agreement lg 10/02 06:01 T-Sheet-- Draft Copy lja Chart Complete MTDD
--- NOTE | 2016-10-03 19:11 | EDDOCDS ---
Physician Documentation [facility] Name: Thony Simpson Age: 61 yrs Sex: Male : 1955 Arrival Date: 10/01/2016 Time: 13:54 Bed I6 / 28 Private MD: Martita Li N. Disposition: 10/01/16 17:37 Discharged to Home/Self Care. Impression: Abdominal and pelvic pain - with Splenic Cysts up to 1.4 cm, benign appearing. - Condition is Stable. - Discharge Instructions: Abdominal Pain, Adult. - Medication Reconciliation, Local Pharmacy Hours form. - Follow up: Martita Li; When: 1 - 2 days; Reason: Recheck today's complaints, Continuance of care. Follow up: Emergency Department; When: As needed; Reason: Worsening of conditions. - Problem is new. - Symptoms have improved. Historical: - Allergies: no known allergies; - Home Meds: 1. Zantac 75 mg Oral every couple of weeks- prn - PMHx: Hypertension; GERD; Hyperthyroidism; - PSHx: Colonoscopy; Hernia repair; - Social history: Smoking status: Patient states was never smoker of tobacco. No barriers to communication noted, The patient speaks fluent Estonian, Speaks appropriately for age. - Family history: Not pertinent. - : The pt / caregiver states he / she is not on anticoagulants. Home medication list is obtained from the patient. - Exposure Risk Screening:: None identified. Vital Signs: 10/01 13:56 BP 165 / 98; Pulse 82; Resp 18 S; Temp 97.9(O); Pulse Ox 100% on R/A; Weight 86.18 kg / dd6 189.99 lbs (R); Height 6 ft. 0 in. (182.88 cm) (R); 17:59 BP 145 / 75; Pulse 72; Resp 20; Temp 97.6; Pulse Ox 100% ; Pain 3/10; jam1 13:56 Body Mass Index 25.77 (86.18 kg, 182.88 cm) dd6 MDM: 14:11 HIV Screen, Nursing ordered. srm 15:15 IV Saline Lock ordered. dk1 15:15 Undress patient appropriately for examination ordered. dk1 15:17 NOTHING BY MOUTH+DIET ordered. EDMS 15:17 Amylase Ordered. EDMS 15:17 Basic Metabolic Profile Ordered. EDMS 15:17 CBC with Diff Ordered. EDMS 15:17 Urinalysis Ordered. EDMS 15:17 Urine Culture Ordered. EDMS 15:20 LIPASE Ordered. EDMS 15:20 LIVER PROFILE Ordered. EDMS 15:32 Financial registration complete. lg 15:35 COUNT [facility]CLUDES [facility] Payment Agreement was scanned into [email or web address] and attached to record. lg 16:34 Basic Metabolic Profile Reviewed. dk1 16:34 CBC with Diff Reviewed. dk1 16:34 Urinalysis Reviewed. dk1 16:34 LIVER PROFILE Reviewed. dk1 16:34 Amylase Reviewed. dk1 16:34 LIPASE Reviewed. dk1 16:35 CT ABD & PELVIS: IV Contrast Only Ordered. EDMS 17:33 CT ABD & PELVIS: IV Contrast Only Reviewed. dk1 10/02 06:01 T-Sheet-- Draft Copy was scanned into [email or web address] and attached to record. lja 10:26 Radiology Report was scanned into [employer] and attached to record. gb Signatures: Dispatcher [employer] EDShasta Copeland, RN JEREL [facility] Joanie Barbour, Reg Reg gb Rosa Arnett, Reg Reg lg Emiliano Coker, PA-C PAAmairaniC dk1 Kathy Webb RN RN [facility] Jaqui James The chart was reviewed and I authenticate all verbal orders and agree with the evaluation and treatment provided.Corrections: (The following items were deleted from the chart) 10/01 15:20 15:17 LIPASE+LAB ordered. EDMS EDMS 15:20 15:17 LIVER PROFILE+LAB ordered. EDAK EDMS Attachments: 15:35 COUNT INCLUDES THE [facility] Payment Agreement lg 10/02 06:01 T-Sheet-- Draft Copy lja Chart Complete MTDD
== END 2016-10-01 18:11 | disposition home or self-care (01) ==
LOC: M ED 13:54
DX: D73.4 Cyst of spleen (principal); R10.9 Unspecified abdominal pain; I10 Essential (primary) hypertension; E03.9 Hypothyroidism, unspecified; K21.9 Gastro-esophageal reflux disease without esophagitis
CPT/HCPCS: 36415; 74177; 80048; 80076; 81001; 82150; 83690; 85025; 87086; 99284; Q9967

== ENCOUNTER → 2018-10-30 | Outpatient (CLI) | payer MEDICARE ==
--- NOTE | 2018-10-30 13:27 | REP ---
Clinical: Mid thoracic and back pain . Comparison: 06/25/2013 . Technique: PA and lateral. Findings: The mediastinum and cardiac silhouette are normal. The lung bautista are clear and without acute consolidation, effusion, or pneumothorax. The skeletal structures are intact and normal. Impression: 1. No acute cardiopulmonary process. Electronically Signed by Jesus Denson MD 10/30/2018 01:18 P
--- NOTE | 2018-10-30 13:30 | REP ---
Clinical: thoracic back pain. Technique: AP, lateral, and swimmers views. Findings: Alignment and kyphosis is maintained. Vertebral bodies intact. No acute fracture / compression injury or subluxation. Minimal age-related changes include very subtle anterior spurring at multiple thoracic levels. Impression: Essentially age-appropriate examination. No acute fracture / compression injury or subluxation. Electronically Signed by Jesus Denson MD 10/30/2018 01:20 P
--- NOTE | 2018-10-30 13:31 | REP ---
Clinical: Radiculopathy. Technique: AP, lateral, bilateral oblique, and open-mouth views of the cervical spine. Findings: Early advanced multilevel degenerative changes include osteophytosis with endplate sclerosis and disc space narrowing primarily involving C4-5 through C6-7. Alignment is maintained. There is no evidence for acute fracture / compression injury or subluxation. Spinous processes are intact. Open mouth view demonstrates normal C1-C2 articulation and odontoid process. Oblique views demonstrate relatively patent neural foramen. Impression: Early advanced multilevel degenerative spondylosis Electronically Signed by Jesus Denson MD 10/30/2018 01:21 P
== END ==
LOC: M RAD 12:41
PROVIDERS: ATTEND Family Medicine
DX: M43.02 Spondylolysis, cervical region (principal); I77.810 Thoracic aortic ectasia; M54.12 Radiculopathy, cervical region
CPT/HCPCS: 71046; 72052; 72072; G0463

== ENCOUNTER → 2018-11-13 | Outpatient (REF) | payer MEDICARE ==
[2018-11-13 19:45] LABS: BASO % 0.3 % (0.0-1.0); EOS # 0.1 10^3/uL (0.0-0.50); EOS % 2.1 % (0.0-3.0); HEMATOCRIT 45.1 % (42.0-52.0); HEMOGLOBIN 15.1 g/dl (13.5-17.5); LYMPH # 1.7 10^3/uL (1.5-4.5); LYMPH % 25.8 % (24.0-44.0); MEAN CORPUSCULAR HEMOGLOBIN 31.6 pg (27.0-33.0); MEAN CORPUSCULAR HGB CONC 33.5 g/dl (32.0-36.5); MEAN CORPUSCULAR VOLUME 94.4 fl (80.0-96.0); MONO # 0.7 10^3/uL (0.0-0.8); MONO % 9.9 % (0.0-5.0); NEUTROPHILS # 4.2 10^3/uL (1.8-7.7); NEUTROPHILS % 61.6 % (36.0-66.0); PLATELET COUNT, AUTOMATED 258 10^3/uL (150-450); RED BLOOD COUNT 4.78 10^6/uL (4.30-6.10); WHITE BLOOD COUNT 6.7 10^3/uL (4.0-10.0)
[2018-11-13 19:49] LABS: ALBUMIN 3.6 GM/DL (3.2-5.2); ALT/SGPT 26 U/L (12-78); BILIRUBIN,TOTAL 0.3 MG/DL (0.2-1.0); BLOOD UREA NITROGEN 20 MG/DL (7-18); CALCIUM LEVEL 8.9 MG/DL (8.8-10.2); CARBON DIOXIDE LEVEL 28 MEQ/L (21-32); CHLORIDE LEVEL 109 MEQ/L (98-107); CHOLESTEROL LEVEL 243 MG/DL (<200); CHOLESTEROL RISK RATIO 3.422 (<5); CREATININE FOR GFR 0.97 MG/DL (0.70-1.30); GLOMERULAR FILTRATION RATE > 60.0 (>49); GLUCOSE, FASTING 97 MG/DL (70-100); HDL CHOLESTEROL 71 MG/DL (>40); LDL CHOLESTEROL 140 MG/DL (<100); NON-HDL-C 172 MG/DL; POTASSIUM SERUM 4.6 MEQ/L (3.5-5.1); SODIUM LEVEL 144 MEQ/L (136-145); TOTAL PROTEIN 7.1 GM/DL (6.4-8.2); TRIGLYCERIDES LEVEL 158 MG/DL (<150)
== END ==
LOC: M SFHCADAM 14:26
PROVIDERS: ATTEND Physician Assistant Medical
DX: I10 Essential (primary) hypertension (principal)
CPT/HCPCS: 80053; 80061; 84443; 85025; 90682; G0008; G0463

== ENCOUNTER → 2019-06-09 | Outpatient (REF) | payer MEDICARE | LOC: M LAB REF 17:19 | PROVIDERS: ATTEND Surgery | DX: L72.3 Sebaceous cyst (principal) ==

== ENCOUNTER → 2021-08-01 | Outpatient (REF) | payer MEDICARE | LOC: M LAB REF 16:11 | PROVIDERS: ATTEND Surgery | DX: C44.310 Basal cell carcinoma of skin of unspecified parts of face (principal) ==

== ENCOUNTER → 2021-09-01 | Outpatient (CLI) | payer MEDICARE ==
[2021-09-01 17:49] LABS: BASO % 0.2 % (0.0-1.0); EOS # 0.2 10^3/uL (0.0-0.5); EOS % 2.7 % (0.0-3.0); HEMATOCRIT 46.5 % (42.0-52.0); HEMOGLOBIN 15.2 g/dl (13.5-17.5); LYMPH # 2.1 10^3/uL (1.5-5.0); LYMPH % 32.6 % (24.0-44.0); MEAN CORPUSCULAR HEMOGLOBIN 31.2 pg (27.0-33.0); MEAN CORPUSCULAR HGB CONC 32.7 g/dl (32.0-36.5); MEAN CORPUSCULAR VOLUME 95.5 fl (80.0-96.0); MONO # 0.7 10^3/uL (0.0-0.8); MONO % 11.6 % (2.0-8.0); NEUTROPHILS # 3.4 10^3/uL (1.5-8.5); NEUTROPHILS % 52.6 % (36.0-66.0); PLATELET COUNT, AUTOMATED 243 10^3/uL (150-450); RED BLOOD COUNT 4.87 10^6/uL (4.30-6.10); WHITE BLOOD COUNT 6.4 10^3/uL (4.0-10.0)
[2021-09-01 18:16] LABS: ALBUMIN 3.5 GM/DL (3.2-5.2); ALT/SGPT 22 U/L (12-78); BILIRUBIN,TOTAL 0.3 MG/DL (0.2-1.0); BLOOD UREA NITROGEN 20 MG/DL (7-18); CALCIUM LEVEL 8.8 MG/DL (8.8-10.2); CARBON DIOXIDE LEVEL 24 MEQ/L (21-32); CHLORIDE LEVEL 111 MEQ/L (98-107); CHOLESTEROL LEVEL 240 MG/DL (<200); CREATININE FOR GFR 0.95 MG/DL (0.70-1.30); GLOMERULAR FILTRATION RATE > 60.0 (>49); GLUCOSE, FASTING 97 MG/DL (70-100); HDL CHOLESTEROL 60 MG/DL (>40); LDL CHOLESTEROL 133 MG/DL (<100); NON-HDL-C 180 MG/DL; POTASSIUM SERUM 4.3 MEQ/L (3.5-5.1); SODIUM LEVEL 142 MEQ/L (136-145); TOTAL PROTEIN 7.3 GM/DL (6.4-8.2); TRIGLYCERIDES LEVEL 234 MG/DL (<150)
== END ==
LOC: M LAB 16:50
PROVIDERS: ATTEND Physician Assistant Medical
DX: E03.9 Hypothyroidism, unspecified (principal); I11.0 Hypertensive heart disease with heart failure; I50.32 Chronic diastolic (congestive) heart failure; Z12.11 Encounter for screening for malignant neoplasm of colon; Z23 Encounter for immunization
CPT/HCPCS: 36415; 80053; 80061; 84443; 85025; 90732; 93005; G0009

== ENCOUNTER → 2022-01-17 | Outpatient (CLI) | payer MEDICARE | LOC: M CARPUL 09:08 | PROVIDERS: ATTEND Physician Assistant Medical | DX: I50.32 Chronic diastolic (congestive) heart failure (principal); I08.3 Combined rheumatic disorders of mitral, aortic and tricuspid valves; I31.3 Pericardial effusion (noninflammatory) ==

== ENCOUNTER → 2022-03-02 | Outpatient (CLI) | payer MEDICARE ==
[~2022-03-02] MED LIST: ATOR40TA75 PO; LOSA50TA28 PO
== END ==
LOC: M ADAMS 12:01
PROVIDERS: ATTEND Physician Assistant Medical
DX: M25.511 Pain in right shoulder (principal); E78.2 Mixed hyperlipidemia; E03.9 Hypothyroidism, unspecified

== ENCOUNTER → 2022-03-02 | Outpatient (REF) | payer MEDICARE ==
[2022-03-02 18:06] LABS: ALBUMIN 3.6 GM/DL (3.2-5.2); ALT/SGPT 20 U/L (12-78); BILIRUBIN,TOTAL 0.6 MG/DL (0.2-1.0); BLOOD UREA NITROGEN 17 MG/DL (7-18); CALCIUM LEVEL 9.1 MG/DL (8.8-10.2); CARBON DIOXIDE LEVEL 30 MEQ/L (21-32); CHLORIDE LEVEL 111 MEQ/L (98-107); CHOLESTEROL LEVEL 155 MG/DL (<200); CHOLESTEROL RISK RATIO 2.214 (<5); CREATININE FOR GFR 0.98 MG/DL (0.70-1.30); GLOMERULAR FILTRATION RATE > 60.0 (>49); GLUCOSE, FASTING 81 MG/DL (70-100); HDL CHOLESTEROL 70 MG/DL (>40); LDL CHOLESTEROL 62 MG/DL (<100); NON-HDL-C 85 MG/DL; POTASSIUM SERUM 4.2 MEQ/L (3.5-5.1); SODIUM LEVEL 145 MEQ/L (136-145); TOTAL PROTEIN 7.1 GM/DL (6.4-8.2); TRIGLYCERIDES LEVEL 114 MG/DL (<150)
== END ==
LOC: M SFHCADAM 11:58
PROVIDERS: ATTEND Physician Assistant Medical
DX: E78.2 Mixed hyperlipidemia (principal); E03.9 Hypothyroidism, unspecified

== ENCOUNTER → 2022-03-06 | Outpatient (CLI) | payer MEDICARE | LOC: M LABSMTC 09:13 | PROVIDERS: ATTEND Anesthesiology | DX: Z01.812 Encounter for preprocedural laboratory examination (principal); Z20.822 Contact with and (suspected) exposure to COVID-19 ==

== ENCOUNTER 2022-03-07 06:17 | Day surgery (SDC) | payer MEDICARE ==
[~2022-03-07] VITALS: Ht 182.9 cm; Wt 93.9 kg
[~2022-03-07 06:17] MED LIST changes: +NS 1,000 ML IV ONE
[2022-03-07] MEDS ORDERED: propofoL 200 MG/20 ML VIAL As Ordered ONE ×2 (07:14→07:15)
[2022-03-07] MEDS ORDERED: LIDOCAINE 2% 100MG/5ML SDV (FOR ANES.) As Ordered ONE (07:15)
[2022-03-07 08:25] VITALS: BP 123/76
== END 2022-03-07 12:11 | disposition home or self-care (01) ==
LOC: M OPP 06:17
PROVIDERS: ATTEND Surgery
DX: Z12.11 Encounter for screening for malignant neoplasm of colon (principal); D12.3 Benign neoplasm of transverse colon; K63.5 Polyp of colon; K57.30 Diverticulosis of large intestine without perforation or abscess without bleeding; K64.0 First degree hemorrhoids; Z79.02 Long term (current) use of antithrombotics/antiplatelets; Z79.899 Other long term (current) drug therapy

== ENCOUNTER → 2023-01-16 | Outpatient (REF) | payer MEDICARE ==
[~2023-01-16] MED LIST changes: -NS 1,000 ML IV ONE
[2023-01-16 17:07] LABS: BASO % 0.2 % (0.0-1.0); EOS # 0.1 10^3/uL (0.0-0.5); EOS % 1.7 % (0.0-3.0); HEMATOCRIT 46.3 % (42.0-52.0); HEMOGLOBIN 15.3 g/dl (13.5-17.5); LYMPH # 1.7 10^3/uL (1.5-5.0); LYMPH % 35.7 % (24.0-44.0); MEAN CORPUSCULAR HEMOGLOBIN 31.8 pg (27.0-33.0); MEAN CORPUSCULAR VOLUME 96.3 fl (80.0-96.0); MONO # 0.5 10^3/uL (0.0-0.8); MONO % 10.8 % (2.0-8.0); NEUTROPHILS # 2.5 10^3/uL (1.5-8.5); NEUTROPHILS % 51.6 % (36.0-66.0); PLATELET COUNT, AUTOMATED 204 10^3/uL (150-450); RED BLOOD COUNT 4.81 10^6/uL (4.30-6.10); WHITE BLOOD COUNT 4.8 10^3/uL (4.0-10.0)
[2023-01-16 17:32] LABS: ALBUMIN 3.7 G/DL (3.2-5.2); ALKALINE PHOSPHATASE 53 U/L (46-116); ALT/SGPT 16 U/L (7.0-40); AST/SGOT 15 U/L (<34); BILIRUBIN,TOTAL 0.6 MG/DL (0.3-1.2); BLOOD UREA NITROGEN 17 MG/DL (9-23); CALCIUM LEVEL 9.2 MG/DL (8.3-10.6); CARBON DIOXIDE LEVEL 28 MMOL/L (20-31); CHLORIDE LEVEL 107 MMOL/L (98-107); CHOLESTEROL LEVEL 210 MG/DL (<200); CHOLESTEROL RISK RATIO 3.79 (<5); GLOMERULAR FILTRATION RATE > 60.0 (>49); GLUCOSE, FASTING 92 MG/DL (74-106); HDL CHOLESTEROL 55.3 MG/DL (>40); LDL CHOLESTEROL 125.1 MG/DL (<100); NON-HDL-C 154.7 MG/DL; POTASSIUM SERUM 4.1 MMOL/L (3.5-5.1); SODIUM LEVEL 141 MMOL/L (136-145); TOTAL PROTEIN 7.4 G/DL (5.7-8.2); TRIGLYCERIDES LEVEL 148 MG/DL (<150)
== END ==
LOC: M SFHCADAM 12:12
PROVIDERS: ATTEND Physician Assistant Medical
DX: I50.32 Chronic diastolic (congestive) heart failure (principal); E03.9 Hypothyroidism, unspecified; I11.0 Hypertensive heart disease with heart failure

== ENCOUNTER → 2023-12-03 | Outpatient (REF) | payer MEDICARE ==
[2023-12-03 14:27] LABS: BASO % 0.4 % (0.0-1.0); EOS # 0.1 10^3/uL (0.0-0.5); EOS % 1.9 % (0.0-3.0); HEMATOCRIT 48.9 % (42.0-52.0); HEMOGLOBIN 16.2 g/dl (13.5-17.5); LYMPH # 1.6 10^3/uL (1.5-5.0); LYMPH % 30.3 % (24.0-44.0); MEAN CORPUSCULAR HEMOGLOBIN 32.2 pg (27.0-33.0); MEAN CORPUSCULAR HGB CONC 33.1 g/dl (32.0-36.5); MEAN CORPUSCULAR VOLUME 97.2 fl (80.0-96.0); MONO # 0.5 10^3/uL (0.0-0.8); MONO % 9.8 % (2.0-8.0); NEUTROPHILS % 57.4 % (36.0-66.0); PLATELET COUNT, AUTOMATED 192 10^3/uL (150-450); RED BLOOD COUNT 5.03 10^6/uL (4.30-6.10); WHITE BLOOD COUNT 5.2 10^3/uL (4.0-10.0)
[2023-12-03 14:51] LABS: ALBUMIN 3.9 G/DL (3.2-5.2); ALKALINE PHOSPHATASE 63 U/L (46-116); ALT/SGPT 16 U/L (7.0-40); AST/SGOT 11 U/L (<34); BILIRUBIN,TOTAL 0.8 MG/DL (0.3-1.2); BLOOD UREA NITROGEN 17 MG/DL (9-23); CALCIUM LEVEL 9.5 MG/DL (8.3-10.6); CARBON DIOXIDE LEVEL 27 MMOL/L (20-31); CHLORIDE LEVEL 108 MMOL/L (98-107); CHOLESTEROL LEVEL 133 MG/DL (<200); CHOLESTEROL RISK RATIO 2.33 (<5); CREATININE FOR GFR 0.89 MG/DL (0.70-1.30); GLOMERULAR FILTRATION RATE > 60.0 (>42); GLUCOSE, FASTING 99 MG/DL (74-106); HDL CHOLESTEROL 56.9 MG/DL (>40); LDL CHOLESTEROL 58.9 MG/DL (<100); NON-HDL-C 76.1 MG/DL; POTASSIUM SERUM 4.5 MMOL/L (3.5-5.1); SODIUM LEVEL 140 MMOL/L (136-145); TOTAL PROTEIN 7.2 G/DL (5.7-8.2); TRIGLYCERIDES LEVEL 86 MG/DL (<150)
[2023-12-03 14:54] LABS: THYROID STIMULATING HORMONE 2.205 uIU/ML (0.55-4.78); TOTAL 25(OH) VITAMIN D 16.8 NG/ML (20.0-100.0)
== END ==
LOC: M SFHCADAM 11:11
PROVIDERS: ATTEND Physician Assistant Medical
DX: Z00.00 Encounter for general adult medical examination without abnormal findings (principal); E03.9 Hypothyroidism, unspecified; E78.2 Mixed hyperlipidemia; I11.0 Hypertensive heart disease with heart failure; Z79.899 Other long term (current) drug therapy

== ENCOUNTER → 2023-12-03 | Outpatient (REF) | payer MEDICARE | LOC: M SFHCDERM 17:58 | PROVIDERS: ATTEND Physician Assistant | DX: C44.311 Basal cell carcinoma of skin of nose (principal) ==

== ENCOUNTER → 2023-12-09 | Outpatient (CLI) | payer MEDICARE | LOC: M PLAIMG 08:34 | PROVIDERS: ATTEND Physician Assistant Medical | DX: I50.32 Chronic diastolic (congestive) heart failure (principal); I77.810 Thoracic aortic ectasia; I08.3 Combined rheumatic disorders of mitral, aortic and tricuspid valves ==

== ENCOUNTER → 2023-12-19 | Outpatient (CLI) | payer MEDICARE | LOC: M RAD 08:24 | PROVIDERS: ATTEND Physician Assistant Medical | DX: I50.32 Chronic diastolic (congestive) heart failure (principal); I77.810 Thoracic aortic ectasia ==

== ENCOUNTER → 2024-07-27 | Outpatient (CLI) | payer MEDICARE | LOC: M ADAMS 14:11 | PROVIDERS: ATTEND Physician Assistant Medical | DX: R05.1 Acute cough (principal) ==

== ENCOUNTER → 2024-08-11 | Outpatient (REF) | payer MEDICARE | LOC: M SFHCDERM 17:49 | PROVIDERS: ATTEND Physician Assistant | DX: C44.612 Basal cell carcinoma of skin of right upper limb, including shoulder (principal) ==

== ENCOUNTER → 2025-01-26 | Outpatient (REF) | payer MEDICARE ==
[2025-01-26 18:51] LABS: BASO % 0.6 % (0.0-1.0); EOS # 0.2 10^3/uL (0.0-0.5); EOS % 3.4 % (0.0-3.0); HEMATOCRIT 42.1 % (42.0-52.0); LYMPH # 1.7 10^3/uL (1.5-5.0); LYMPH % 30.9 % (24.0-44.0); MEAN CORPUSCULAR HEMOGLOBIN 31.8 pg (27.0-33.0); MEAN CORPUSCULAR HGB CONC 33.3 g/dl (32.0-36.5); MEAN CORPUSCULAR VOLUME 95.7 fl (80.0-96.0); MONO # 0.6 10^3/uL (0.0-0.8); MONO % 11.7 % (2.0-8.0); NEUTROPHILS # 2.9 10^3/uL (1.5-8.5); NEUTROPHILS % 53.2 % (36.0-66.0); PLATELET COUNT, AUTOMATED 204 10^3/uL (150-450); WHITE BLOOD COUNT 5.4 10^3/uL (4.0-10.0)
[2025-01-26 19:19] LABS: ALBUMIN 3.4 G/DL (3.2-5.2); ALKALINE PHOSPHATASE 51 U/L (40-129); ALT/SGPT 35 U/L (7.0-40); AST/SGOT 30 U/L (<34); BILIRUBIN,TOTAL 0.5 MG/DL (0.3-1.2); BLOOD UREA NITROGEN 17 MG/DL (9-23); CALCIUM LEVEL 8.7 MG/DL (8.3-10.6); CARBON DIOXIDE LEVEL 24 MMOL/L (20-31); CHLORIDE LEVEL 111 MMOL/L (98-107); CHOLESTEROL LEVEL 131 MG/DL (<200); CHOLESTEROL RISK RATIO 2.33 (<5); CREATININE FOR GFR 0.89 MG/DL (0.70-1.30); GLOMERULAR FILTRATION RATE > 90.0 (>42); GLUCOSE, FASTING 113 MG/DL (74-106); HDL CHOLESTEROL 56.1 MG/DL (>40); LDL CHOLESTEROL 52.9 MG/DL (<100); NON-HDL-C 74.9 MG/DL; SODIUM LEVEL 146 MMOL/L (136-145); TOTAL PROTEIN 6.4 G/DL (5.7-8.2); TRIGLYCERIDES LEVEL 110 MG/DL (<150)
[2025-01-26 19:21] LABS: TOTAL 25(OH) VITAMIN D 22.9 NG/ML (20.0-100.0)
== END ==
LOC: M SFHCADAM 14:05
PROVIDERS: ATTEND Physician Assistant Medical
DX: I50.32 Chronic diastolic (congestive) heart failure (principal); E03.9 Hypothyroidism, unspecified; I10 Essential (primary) hypertension; E78.2 Mixed hyperlipidemia; E55.9 Vitamin D deficiency, unspecified